=== PATIENT | female | born 1945 | race Caucasian/White ===

== ENCOUNTER 2018-05-22 15:08 | Emergency (ER) | payer MEDICARE ==
[~2018-05-22] VITALS: Ht 160 cm; Wt 95.0 kg
[~2018-05-22 15:08] MED LIST: ASPIRIN EC81 MG PO; GLIMEPIRIDE2 MG PO; LEVEMIR1000 UNITS SC; LIPITOR20 MG PO; METOPROL TAR25 MG PO; MIRACLEMM PO; PERIDEX0.12 % MT
[2018-05-22] MEDS ORDERED: AMARYL2 MG PO (15:45)
[2018-05-22] MEDS ORDERED: HUMULIN 70/30 SC (15:48)
[2018-05-22] MEDS ORDERED: KEFLEX500 M1 PO (16:33)
[2018-05-22 16:40] VITALS: BP 138/68
== END 2018-05-22 16:48 | disposition home or self-care (01) ==
LOC: ED 15:08
DX: L03.031 Cellulitis of right toe (principal); E11.40 Type 2 diabetes mellitus with diabetic neuropathy, unspecified; Z79.4 Long term (current) use of insulin

== ENCOUNTER 2018-06-10 09:47 | Emergency (ER) | payer MEDICARE ==
[~2018-06-10] VITALS: Ht 160 cm; Wt 100.0 kg
[~2018-06-10 09:47] MED LIST changes: +AMARYL2 MG PO; +HUMULIN 70/30 SC; +KEFLEX500 M1 PO
[2018-06-10 10:21] LABS: HEMOGLOBIN 14.1 g/dl (12.0-16.0); IMMATURE GRANULOCYTES 0.4 % (0.0-5.0); MEAN CELL VOLUME 92.5 fL CALC (80.0-100.0); MEAN CORPUSCULAR HGB 30.3 pG CALC (26.0-32.0); MEAN CORPUSCULAR HGB CONC 32.8 g/L CALC (32.0-36.0); NEUT# 5.46 thou/uL (2.00-7.15); RED BLOOD COUNT 4.65 mill/uL (4.20-5.60); RED CELL DISTRI WIDTH 13.1 % (11.5-15.5)
[2018-06-10 10:22] LABS: URINE BILIRUBIN - DIPSTICK NEGATIVE (NEGATIVE); URINE BLOOD DIPSTICK LARGE (NEGATIVE); URINE COLOR YELLOW; URINE GLUCOSE - DIPSTICK NEGATIVE (NEGATIVE); URINE KETONE NEGATIVE (NEGATIVE); URINE PROTEIN - DIPSTICK TRACE mg/dL (NEG-TRACE); URINE SPECIFIC GRAVITY <=1.005; URINE UROBILINOGEN - DIPSTICK 0.2 E.U./dL (0.2)
[2018-06-10 10:24] LABS: URINE LEUK ESTERASE MODERATE (NEGATIVE); URINE NITRITE - DIPSTICK POSITIVE (Negative)
[2018-06-10 10:25] LABS: URINE BACTERIA RARE hpf
[2018-06-10 10:41] LABS: ALBUMIN 4.4 g/dL (3.2-5.0); ALKALINE PHOSPHATASE 124 u/l (38-126); ANION GAP 17 (6-22 (CALC)); BILIRUBIN, TOTAL 0.7 mg/dL (0.0-1.4); BUN 11 mg/dL (8-23); BUN/CREATININE RATIO 16 (12-20 (CALC)); CARBON DIOXIDE 23 mmol/l (22-30); CHLORIDE 105 mmol/l (95-108); CREATININE 0.7 mg/dL (0.5-1.0); GFR > 60 ML/MIN (>=60 (CALC)); GFR FOR AFR.AMER. > 60 ML/MIN (>=60 (CALC)); LIPASE 67 u/l (23-300); POTASSIUM 4.3 mmol/l (3.5-5.1); SGOT/AST 27 u/l (9-36); SODIUM 141 mmol/l (137-146); TOTAL PROTEIN 7.3 g/dL (6.3-8.2)
[2018-06-10] MEDS ORDERED: TAMSULOSIN0.4 MG PO (10:53)
[2018-06-10] MEDS ORDERED: CEPHALEXIN500 M1 PO (10:53)
[2018-06-10] MEDS ORDERED: HYDROCO/APAP1 TA9 PO (10:53)
[2018-06-10 11:23] VITALS: BP 153/88
== END 2018-06-10 11:38 | disposition home or self-care (01) ==
LOC: ED 09:47
PROVIDERS: Family Medicine
DX: N13.2 Hydronephrosis with renal and ureteral calculous obstruction (principal); E11.40 Type 2 diabetes mellitus with diabetic neuropathy, unspecified

== ENCOUNTER 2018-06-10 13:54 | Observation (INO) | payer MEDICARE ==
[~2018-06-10] VITALS: Ht 160 cm; Wt 97.7 kg
[~2018-06-10 13:54] MED LIST changes: +CEPHALEXIN500 M1 PO; +HYDROCO/APAP1 TA9 PO; +TAMSULOSIN0.4 MG PO
[2018-06-10 17:10] VITALS: BP 133/66
[2018-06-10 19:18] VITALS: BP 122/88
[2018-06-10 23:23] VITALS: BP 98/50
[2018-06-11] VITALS (9 sets, daily range): BP systolic 104–126; BP diastolic 54–68
[2018-06-11 05:24] LABS: IMMATURE GRANULOCYTES 0.6 % (0.0-5.0); MEAN CELL VOLUME 93.5 fL CALC (80.0-100.0); MEAN CORPUSCULAR HGB 30.9 pG CALC (26.0-32.0); NEUT# 6.72 thou/uL (2.00-7.15); RED BLOOD COUNT 3.69 mill/uL (4.20-5.60); RED CELL DISTRI WIDTH 13.2 % (11.5-15.5)
[2018-06-11 05:25] LABS: HEMATOCRIT 34.5 % (37.0-47.0); HEMOGLOBIN 11.4 g/dl (12.0-16.0)
[2018-06-11 05:49] LABS: ALKALINE PHOSPHATASE 85 u/l (38-126); AMYLASE 32 u/l (30-110); ANION GAP 13 (6-22 (CALC)); BILIRUBIN, TOTAL 0.7 mg/dL (0.0-1.4); BUN 14 mg/dL (8-23); BUN/CREATININE RATIO 17 (12-20 (CALC)); CARBON DIOXIDE 23 mmol/l (22-30); CHLORIDE 107 mmol/l (95-108); CREATININE 0.8 mg/dL (0.5-1.0); GFR > 60 ML/MIN (>=60 (CALC)); GFR FOR AFR.AMER. > 60 ML/MIN (>=60 (CALC)); LIPASE 51 u/l (23-300); MAGNESIUM 1.9 mg/dL (1.6-2.3); POTASSIUM 4.1 mmol/l (3.5-5.1); SGOT/AST 25 u/l (9-36); SODIUM 139 mmol/l (137-146)
[2018-06-11 05:54] LABS: ALBUMIN 3.1 g/dL (3.2-5.0); TOTAL PROTEIN 5.5 g/dL (6.3-8.2)
[2018-06-12 04:17] VITALS: BP 134/90
[2018-06-12 05:31] LABS: HEMATOCRIT 37.6 % (37.0-47.0); HEMOGLOBIN 12.1 g/dl (12.0-16.0); IMMATURE GRANULOCYTES 0.6 % (0.0-5.0); MEAN CELL VOLUME 95.4 fL CALC (80.0-100.0); MEAN CORPUSCULAR HGB 30.7 pG CALC (26.0-32.0); MEAN CORPUSCULAR HGB CONC 32.2 g/L CALC (32.0-36.0); NEUT# 4.7 thou/uL (2.00-7.15); RED BLOOD COUNT 3.94 mill/uL (4.20-5.60); RED CELL DISTRI WIDTH 13.3 % (11.5-15.5)
[2018-06-12 05:57] LABS: ALBUMIN 3.5 g/dL (3.2-5.0); ALKALINE PHOSPHATASE 93 u/l (38-126); ANION GAP 14 (6-22 (CALC)); BILIRUBIN, TOTAL 0.7 mg/dL (0.0-1.4); BUN 11 mg/dL (8-23); BUN/CREATININE RATIO 15 (12-20 (CALC)); CARBON DIOXIDE 25 mmol/l (22-30); CHLORIDE 108 mmol/l (95-108); CREATININE 0.7 mg/dL (0.5-1.0); GFR > 60 ML/MIN (>=60 (CALC)); GFR FOR AFR.AMER. > 60 ML/MIN (>=60 (CALC)); POTASSIUM 4.6 mmol/l (3.5-5.1); SGOT/AST 35 u/l (9-36); SODIUM 142 mmol/l (137-146)
[2018-06-12 08:06] VITALS: BP 124/60
[2018-06-12 08:09] VITALS: BP 124/60
== END 2018-06-12 14:36 | disposition home or self-care (01) ==
LOC: ED 13:54 → ED-I 14:37 → ED 14:48 → MS2 14:49 → ED-I 14:49 → MS2 14:49 → ED 14:49 → MS2 06-11 12:44
PROVIDERS: ADMIT Internal Medicine Nephrology; ATTEND Internal Medicine Nephrology
DX: N13.2 Hydronephrosis with renal and ureteral calculous obstruction (principal); I10 Essential (primary) hypertension; E11.40 Type 2 diabetes mellitus with diabetic neuropathy, unspecified; F41.9 Anxiety disorder, unspecified; E78.5 Hyperlipidemia, unspecified; Z87.442 Personal history of urinary calculi; Z79.4 Long term (current) use of insulin

== ENCOUNTER 2019-03-06 | Emergency (ER) | payer MEDICARE ==
[2019-03-06] MEDS ORDERED: ALPRAZOLAM ER0.5 MG PO (17:55)
[2019-03-06] MEDS ORDERED: HYDROCO/APAP1 T13 PO (17:55)
[2019-03-06 18:01] LABS: HEMATOCRIT 45.4 % (37.0-47.0); IMMATURE GRANULOCYTES 0.7 % (0.0-5.0); MEAN CELL VOLUME 92.7 fL CALC (80.0-100.0); MEAN CORPUSCULAR HGB 30.6 pG CALC (26.0-32.0); NEUT# 6.7 thou/uL (2.00-7.15); RED BLOOD COUNT 4.9 mill/uL (4.20-5.60); RED CELL DISTRI WIDTH 12.9 % (11.5-15.5)
[2019-03-06 18:17] LABS: ALBUMIN 4.4 g/dL (3.2-5.0); ALKALINE PHOSPHATASE 92 u/l (38-126); ANION GAP 15 (6-22 (CALC)); BILIRUBIN, TOTAL 0.6 mg/dL (0.0-1.4); BUN 13 mg/dL (8-23); CARBON DIOXIDE 27 mmol/l (22-30); CHLORIDE 101 mmol/l (95-108); POTASSIUM 4.5 mmol/l (3.5-5.1); SGOT/AST 37 u/l (9-36); SODIUM 139 mmol/l (137-146)
[2019-03-06 18:30] LABS: BUN/CREATININE RATIO 16 (12-20 (CALC)); CREATININE 0.8 mg/dL (0.5-1.0); GFR > 60 ML/MIN (>=60 (CALC)); GFR FOR AFR.AMER. > 60 ML/MIN (>=60 (CALC))
[2019-03-06 18:53] LABS: PROTHROMBIN TIME 10.7 SECONDS (9.0-12.5)
== END 2019-03-06 18:22 | disposition short-term general hospital (02) ==
DX: I21.3 ST elevation (STEMI) myocardial infarction of unspecified site (principal); E11.40 Type 2 diabetes mellitus with diabetic neuropathy, unspecified

== ENCOUNTER 2020-03-02 23:17 | Inpatient (IN) | payer MEDICARE ==
[~2020-03-02] VITALS: Ht 157.5 cm; Wt 99.0 kg
[~2020-03-02 23:17] MED LIST changes: +ALPRAZOLAM ER0.5 MG PO; +HYDROCO/APAP1 T13 PO
--- NOTE | 2020-03-02 23:21 | NUR ---
PATIENT TO ROOM 12. TRIAGE COMPLETED AT BEDSIDE. AWAITING MD LEON.
[2020-03-02] MEDS ORDERED: AMITRIPTYLIN10 MG PO (23:36)
[2020-03-03] VITALS (8 sets, daily range): BP systolic 108–197; BP diastolic 47–97
--- NOTE | 2020-03-03 00:05 | NUR ---
IV ESTABLISHED, MEDS GIVEN.
[2020-03-03 00:40] LABS: HEMATOCRIT 44.3 % (37.0-47.0); HEMOGLOBIN 14.8 g/dl (12.0-16.0); IMMATURE GRANULOCYTES 0.7 % (0.0-5.0); MEAN CELL VOLUME 93.5 fL CALC (80.0-100.0); MEAN CORPUSCULAR HGB 31.2 pG CALC (26.0-32.0); MEAN CORPUSCULAR HGB CONC 33.4 g/dL CAL (32.0-36.0); NEUT# 6.9 thou/uL (2.00-7.15); RED BLOOD COUNT 4.74 mill/uL (4.20-5.60); RED CELL DISTRI WIDTH 12.4 % (11.5-15.5)
[2020-03-03 00:41] LABS: URINE BILIRUBIN - DIPSTICK NEGATIVE (NEGATIVE); URINE BLOOD DIPSTICK LARGE (NEGATIVE); URINE COLOR YELLOW; URINE GLUCOSE - DIPSTICK >=1000 mg/dL (NEGATIVE); URINE KETONE NEGATIVE (NEGATIVE); URINE LEUK ESTERASE LARGE (NEGATIVE); URINE NITRITE - DIPSTICK NEGATIVE (Negative); URINE PH 7.5 (4.5-8.0); URINE PROTEIN - DIPSTICK NEGATIVE (NEG-TRACE); URINE UROBILINOGEN - DIPSTICK 0.2 E.U./dL (0.2)
[2020-03-03 00:42] LABS: URINE BACTERIA MODERATE hpf; URINE EPITHELIAL CELLS MODERATE EPI/hpf (0-FEW); URINE RBC >100 RBC/hpf (0-5); URINE WBC >100 WBC/hpf (0-5)
[2020-03-03 00:43] LABS: ALBUMIN 4.2 g/dL (3.2-5.0); ALKALINE PHOSPHATASE 90 u/l (38-126); ANION GAP 13 (6-22 (CALC)); BILIRUBIN, TOTAL 0.5 mg/dL (0.0-1.4); BUN 12 mg/dL (8-23); BUN/CREATININE RATIO 17 (12-20 (CALC)); CARBON DIOXIDE 28 mmol/l (22-30); CHLORIDE 99 mmol/l (95-108); CREATININE 0.7 mg/dL (0.5-1.0); GFR > 60 ML/MIN (>=60 (CALC)); GFR FOR AFR.AMER. > 60 ML/MIN (>=60 (CALC)); POTASSIUM 4.4 mmol/l (3.5-5.1); SGOT/AST 39 u/l (9-36); SODIUM 136 mmol/l (137-146); TOTAL PROTEIN 7.4 g/dL (6.3-8.2)
--- NOTE | 2020-03-03 01:00 | NUR ---
RESTING QUIETLY. AWAITING CT SCAN.
--- NOTE | 2020-03-03 01:40 | NUR ---
DISCUSSED ADMISSION WITH PT.
--- NOTE | 2020-03-03 02:25 | NUR ---
PT TO BE ADMITTED. ADDITIONAL ABX GIVEN.
--- NOTE | 2020-03-03 03:02 | NUR ---
TELEPHONE REPORT RECEIVED FROM Ismael MADRID RN IN ED, ROOM 270 PREPARED TO RECEIVE PT
--- NOTE | 2020-03-03 03:04 | NUR ---
Admission Note Report Given to: AMINAH YING Transported by: Wheelchair X Stretcher Transported with: X Nurse Transporter X Patent IV O2 X Shaker Screen Operator Location: ICU X MS2
--- NOTE | 2020-03-03 03:10 | NUR ---
PT ARRIVES TO UNIT ON STRETCHER ACCOMPANIED BY Ismael MADRID RN AT 0310. PT AMBULATORY TO BED. ADMISSION AND PHYSICAL ASSESMENT COMPLETE. PT COMPLAINS OF STABBING R-FLANK PAIN. NS BOLUS INFUSING TO R-AC 20G, IV SITE PATENT. PLAN OF CARE REVIEWED. PT VERBALIZES UNDERSTANDING AND DENIES QUESTIONS. PT REQUESTING ANALGESIC FOR R-FLANK PAIN AND ANTIEMETIC FOR NAUSEA. DENIES FURTHER NEEDS. CALL DU WITHIN REACH, AGREES TO CALL PRN.
--- NOTE | 2020-03-03 03:30 | NUR ---
NO ORDERS FOR ANALGESIC AT THIS TIME. SPOKE WITH DR. HOOKER IN ED AND ORDER RECEIVED TO REPEAT 0.5MG DILAUDID IV FOR PAIN.
--- NOTE | 2020-03-03 06:00 | NUR ---
PT REQUESTING ADDITIONAL PAIN MEDICATION. MESSAGE LEFT FOR DR. SWENSON.
--- NOTE | 2020-03-03 06:15 | NUR ---
ORDER FOR DILAUDID 0.5MG IV Q3H PRN FOR PAIN RECEIVED FROM DR. SWENSON AND FAXED TO [facility]. FAX CONFIRMATION RECEIVED.
--- NOTE | 2020-03-03 08:19 | NUR ---
REPORT RECIEVED FROM AMINAH YING. PT RESTING IN SEMI FOWLERS POSITION. INTRODUCED SELF TO PT AND DISCUSSED POC. PT IS A/O X3. ASSESSMENT AND VITALS COMPLETED. BP 137/47, HR 78, O2 98% ON ROOM AIR. RESPIRATIONS ARE LABORED, PT GRUNTING. LUNG SOUNDS ARE CLEAR. HEART RHYTHM IS NORMAL WITH TELE MONITORING IN PLACE, 78 PER ER MONITORING. BOWEL SOUNDS ACTIVE, LAST REPORTED BM 03/02/20. RADIAL AND PEDAL PULSES STRONG. #20G IN RAAC INFUSING WITH IVF PER ORDER, SITE APPEARS HEALTHY AND PATENT. SKIN IS WARM AND INTACT, NO SIGNS OF ANY BREAK DOWN. PT COMPLAINS OF 9/10 PAIN IN LEFT FLANK. PT TO BE MEDICATED PER EMAR. PT DENIES OF ANY PAINS OR DISCOMFORTS. ALL SAFETY AND ISOLATION PRECAUTIONS ARE IN PLACE. WILL CONTINUE TO MONITOR.
--- NOTE | 2020-03-03 08:20 | NUR ---
DR ZHANG AT BEDSIDE DICUSSING POC WITH PT
--- NOTE | 2020-03-03 09:43 | NUR ---
HAN,ANRP AT BEDSIDE. ORDERS TO KEEP PT NPO
--- NOTE | 2020-03-03 12:32 | NUR ---
PT COMPLAINS OF 9/10 PAIN IN RIGHT FLANK. DILAUDID ADMINISTERED. RESPIRATIONS REMAINS EVEN AND UNLABORED ON ROOM AIR. TELE MONITORING IN PLACE. PT DENIES OF ANY OTHER PAINS OR DISCOMFORTSALL SAFETY PRECAUTIONS ARE IN PLACE. . WILL CONTINUE TO MONITOR
--- NOTE | 2020-03-03 15:01 | NUR ---
PT TRANSPORTED TO OR ACCOMPAINED BY OR STAFF IN STABLE CONDITION VIA STRETCHER
--- NOTE | 2020-03-03 17:15 | NUR ---
PT ARRIVED BACK TO [facility] ROOM 270 VIA STRETCHER ACCOMPAINED BY OR STAFF. PT IS A/O X3. RESPIRATIONS REMAINS EVEN AND UNLABORED ON ROOM AIR. VITALS OBATINED. BP 137/53, O2 70. LUNG SOUNDS REMAINS EVEN AND UNLABORED. URETERAL STENT PLACED. PT COMPLAINS OF DISCOMFORT BUT REFUSES PAIN MEDICATIONS AT THIS TIME. ALL SAFETY PRECAUTIONS ARE IN PLACE. WILL CONTINUE TO MONITOR
--- NOTE | 2020-03-03 20:02 | NUR ---
INTRODUCED MYSELF TO PT. PHYSICAL ASSESMENT COMPLETE. PT CURRENTLY DENIES PAIN OR DISCOMFORT. SCHEDULED MEDICATIONS AND PRN MEDICATION ADMINISTERED, SEE E-MAR. PT DENIES ANY NEEDS AT THIS TIME. PLAN OF CARE REVIEWED, PT DENIES QUESTIONS, VERBALIZES UNDERSTANDING. ITEMS WITHIN REACH, BED LOCKED IN LOW POSITION W/ BEDRAILS UP X2. CALL DU WITHIN REACH, AGREES TO CALL PRN.
[2020-03-04 00:01] VITALS: BP 132/71
--- NOTE | 2020-03-04 01:12 | NUR ---
PT LAYING IN BED WITH EYES CLOSED, APPEARS TO BE SLEEPING, APPEARS COMFORTABLE AND IN NO DISTRESS. RESPIRATIONS REGULAR AND UNLABORED. ITEMS REMAIN WITHIN REACH, CALL DU REMAINS WITHIN REACH. BED REMAINS LOCKED AND IN LOW POSITION WITH BEDRAILS UP X2. WILL CONTINUE TO MONITOR.
--- NOTE | 2020-03-04 01:46 | NUR ---
PATIENT RESTING IN BED AT THIS TIME-AWAKE WITH NO COMPLAINTS AT THIS TIME. ROCEPHIN HUNG ORDERED VIA LEFT WRIST SITE. TELE MONITOR IN PLACE. SAFETY PRECAUTIONS REINFORCED. CALL LIGHT IN REACH. WILL CONT TO MONITOR.
[2020-03-04 03:37] VITALS: BP 113/70
--- NOTE | 2020-03-04 03:51 | NUR ---
PATIENT RESTING IN BED-C/O SEVERE RIGHT FLANK PAIN-9/10 ON PAIN SCALE. PATIENT MEDICATED WITH DILAUDID 0.5MG IVP VIA LEFT WRIST IV SITE. SITE REMAINS HEALTHY. IVF D/C-TAKING PO FLJUIDS WELL AND TOLERATING WELL. NO NAUSEA AT THIS TIME. PATIENT WAS UP TO BSC AND VOIDED 600CC OF CLOUDY YELLOW UIRNE. SAFETY PRECAUTIONS REINFORCED. CALL LIGHT IN REACH. WILL CONT TO MONITOR.
[2020-03-04 05:56] LABS: MEAN CELL VOLUME 95.9 fL CALC (80.0-100.0); MEAN CORPUSCULAR HGB 31.6 pG CALC (26.0-32.0); RED BLOOD COUNT 3.86 mill/uL (4.20-5.60); RED CELL DISTRI WIDTH 12.6 % (11.5-15.5)
[2020-03-04 06:15] LABS: HEMOGLOBIN 12.2 g/dl (12.0-16.0)
[2020-03-04 06:17] LABS: BUN 8 mg/dL (8-23); BUN/CREATININE RATIO 12 (12-20 (CALC)); CREATININE 0.7 mg/dL (0.5-1.0); GFR > 60 ML/MIN (>=60 (CALC)); GFR FOR AFR.AMER. > 60 ML/MIN (>=60 (CALC)); MAGNESIUM 1.8 mg/dL (1.6-2.3); POTASSIUM 4.3 mmol/l (3.5-5.1); SODIUM 139 mmol/l (137-146)
[2020-03-04 06:22] LABS: ANION GAP 10 (6-22 (CALC)); CARBON DIOXIDE 22 mmol/l (22-30); CHLORIDE 111 mmol/l (95-108)
--- NOTE | 2020-03-04 07:00 | NUR ---
RECIEVED REPORT CAYETANO MERLOS RN
[2020-03-04 08:02] VITALS: BP 144/52
--- NOTE | 2020-03-04 08:02 | NUR ---
PT RESTING IN SEMI FOWLERS POSITION UPON ENTERING ROOM. INTRODUCED SELF TO PT AND DICUSSED POC. PT IS A/O X3. ASSESSMENT AND VITALS COMPLETED. REPSIRATIONS ARE EVEN AND UNLABORED ON ROOM AIR. HEART RHYTHM IS NORMAL WITH TELE IN PLACE. BOWEL SOUNDS ARE ACTIVE, LAST REPORTED BM 03/02/20. RADIAL AND PEDAL PULSES STRONG. #22G IN LEFT WRIST FLUSHED, PT REPORTS BURNING, NEW IV TO BE STARTED. SKIN IS WARM AND DRY WITH NO BREAKDOWN NOTED. PT COMPLAINS OF 9/10 BACK PAIN. PT TO BE MEDICATED PER EMAR. PT DENIES OF ANY ADDITONAL NEEDS AT THIS TIME. ALL SAFETY PRECAUTIONS ARE IN PLACE. WILL CONTINUE TO MONITOR
--- NOTE | 2020-03-04 08:15 | NUR ---
PT RESTING IN SEMI FOLWERS POSITION.INTRODUCED SELF TO PT AND DICUSSED POC. PT IS A/O X3. ASSESSMENT AD VITALS COMPLETED. BP 130/83, HR 84, O2 98% ON ROOM AIR.REPSIRATIONS ARE EVEN AND UNLABORED ON ROOM AIR. HEART RHYTHM IS NORMAL. BOWEL SOUNDS ARE ACTIVE, LAST RPEORTED BM 03/04/20. RADIAL PULSES STRONG. RIGHT PEDAL PULSE WEAK. PT HAS HAD BKA OF LEFT LEG. WOUND VAC ON RIGHT LEG, SUCTION AT 125.MINIMAL AMOUNT OF DRAINAGE NOTED. #20G IN RAC FLUSHED, SITE APPEARS HEALTHY AND PATENT. CO2 MONITORING READING 46 . PT COMPLAINS OF 9/10 PAIN IN RIGHT LEG, DILAUDID ADMINISTERED. PT DENIES OF ANY PAINS OR DISCOMFORTS. ALL SAFETY PRECAUTIONS ARE IN PLACE WITH CALL LIGHT IN REACH. WILL CONTINUE TO MONITOR.
--- NOTE | 2020-03-04 08:19 | NUR ---
DR ALBRIGHT AT BEDSIDE
--- NOTE | 2020-03-04 09:06 | NUR ---
ATTEMPTED TO START NEW IV. UNSUCCESSFUL X2. DLILA TO ATTEMPT.
[2020-03-04 12:06] VITALS: BP 127/43
--- NOTE | 2020-03-04 12:42 | NUR ---
PT COMPLAINS OF PAIN IN BACK, PERCECT ADMINISTERED. REPSIRATIONS ARE EVEN AND UNLABORED ON ROOM AIR. TELE MONBITORING IN PLACE. PT REMAINS A/O X3. PT DENIES OF ANY ADDITONAL NEEDS AT THIS TIME.ALL SAFETY PRECAUTIONS ARE IN PLACE. WILL CONTINUE TO MONITOR
--- NOTE | 2020-03-04 16:40 | NUR ---
PT CALLED STATING " I HAVENT GOTTENT MY PAIN MEDICATIONS, MY IV IS HURTING, I WANT IT OUT AND I DONT WANT MY IV ANTIBIOTICS BECAUSE I HAVE DIRRHEA." PT HAS NOT CALLED FOR PAIN MEDICATION. TOPSTITCHER LOCKSTITCH INFORMED PT THAT IV WAS NEEDED FOR ANTIBIOTICS AND WITHOUT ANTIBIOTICS SEVERE INFECTION WOULD ACCURE. PT STATED " I KNOW I HAPPENED 6 YEARS AGO AND I ALMOST ." #22G IN LFA FLUSHED, SITE APPEARS HEALTHY AND PATENT. TOPSTITCHER LOCKSTITCH SUGGESTED IV CHANGED. PT REFUSED STATED " I DONT WANT TO GET STUCK AGAIN." TOPSTITCHER LOCKSTITCH EXPRESSED THAT IV CHANGE WAS THE ONLY OPTION. NEW #24G IN RH STARTED, SITE APPEARS HEALTHY AND PATENT. PT DENIES OF ANY PAINS OR BURING. DILAUDID TO BE ADMINISTERED. ALL SAFTEY PRECAUTIONS ARE IN PLACE. WILL CONTINUE TO MONITOR
--- NOTE | 2020-03-04 18:02 | NUR ---
REASSESSMENT OF PAIN RESULTING IN 06/28
[2020-03-04 19:00] VITALS: BP 117/55
[2020-03-05 04:00] VITALS: BP 111/54
[2020-03-05 05:25] LABS: HEMATOCRIT 38.7 % (37.0-47.0); HEMOGLOBIN 12.7 g/dl (12.0-16.0); IMMATURE GRANULOCYTES 0.5 % (0.0-5.0); MEAN CELL VOLUME 95.6 fL CALC (80.0-100.0); MEAN CORPUSCULAR HGB 31.4 pG CALC (26.0-32.0); MEAN CORPUSCULAR HGB CONC 32.8 g/dL CAL (32.0-36.0); NEUT# 4.5 thou/uL (2.00-7.15); RED BLOOD COUNT 4.05 mill/uL (4.20-5.60); RED CELL DISTRI WIDTH 12.6 % (11.5-15.5)
[2020-03-05 05:48] LABS: ALKALINE PHOSPHATASE 73 u/l (38-126); ANION GAP 11 (6-22 (CALC)); BILIRUBIN, TOTAL 0.5 mg/dL (0.0-1.4); BUN 8 mg/dL (8-23); BUN/CREATININE RATIO 12 (12-20 (CALC)); CARBON DIOXIDE 26 mmol/l (22-30); CHLORIDE 107 mmol/l (95-108); CREATININE 0.7 mg/dL (0.5-1.0); GFR > 60 ML/MIN (>=60 (CALC)); GFR FOR AFR.AMER. > 60 ML/MIN (>=60 (CALC)); POTASSIUM 4.2 mmol/l (3.5-5.1); SGOT/AST 36 u/l (9-36); SODIUM 141 mmol/l (137-146)
[2020-03-05 06:01] LABS: ALBUMIN 3.2 g/dL (3.2-5.0); TOTAL PROTEIN 5.9 g/dL (6.3-8.2)
[2020-03-05 08:40] VITALS: BP 121/64
--- NOTE | 2020-03-05 08:40 | NUR ---
ASSESSMENT IS COMPLETED: IV SITE IS FREE FROM REDNESS OR EDEMA. HR IS REG,PULSES ARE STRONG X4, ABD IS SOFT WITH ACTIVE BS. BREATH SOUNDS ARE CLEAR BILATERALLY. CONTINUE TO OSBERVE AND MONITOR.
[2020-03-05] MEDS ORDERED: FLORASTOR250 M1 PO (10:53)
[2020-03-05] MEDS ORDERED: BACTRIM DS1 TAB PO (10:55)
[2020-03-05] MEDS ORDERED: ULTRAM50 MG PO (11:03)
[2020-03-05] MEDS ORDERED: LOMOTIL2.5 MG PO (11:03)
== END 2020-03-05 12:45 | DRG 854 ==
LOC: ED 23:17 → ED-I 03-03 01:50 → ED 03-03 02:13 → MS2 03-03 02:14
PROVIDERS: Emergency Medicine; Nurse Practitioner; ADMIT Internal Medicine; ATTEND Internal Medicine
PROC: 0T768DZ Dilation of Right Ureter with Intraluminal Device, Via Natural or Artificial Opening Endoscopic (ICD-10-PCS; principal; 2020-03-03)
PROC: BT1D1ZZ Fluoroscopy of Right Kidney, Ureter and Bladder using Low Osmolar Contrast (ICD-10-PCS; 2020-03-03)
DX: A41.9 Sepsis, unspecified organism (principal); N13.6 Pyonephrosis; I25.10 Atherosclerotic heart disease of native coronary artery without angina pectoris; E11.40 Type 2 diabetes mellitus with diabetic neuropathy, unspecified; E11.65 Type 2 diabetes mellitus with hyperglycemia; R19.7 Diarrhea, unspecified; R51.9 Headache, unspecified; G89.29 Other chronic pain; M48.00 Spinal stenosis, site unspecified; B96.4 Proteus (mirabilis) (morganii) as the cause of diseases classified elsewhere; F17.210 Nicotine dependence, cigarettes, uncomplicated; Z20.822 Contact with and (suspected) exposure to COVID-19; Z79.84 Long term (current) use of oral hypoglycemic drugs; Z79.82 Long term (current) use of aspirin; Z79.891 Long term (current) use of opiate analgesic; Z79.899 Other long term (current) drug therapy; Z88.2 Allergy status to sulfonamides; Z88.8 Allergy status to other drugs, medicaments and biological substances; I25.2 Old myocardial infarction; Z96.652 Presence of left artificial knee joint
CPT/HCPCS: C1769; Q9967